=== PATIENT | male | born 1960 | race Caucasian/White ===

== ENCOUNTER 2019-02-20 17:50 | Emergency (ER) | payer OTHER, MEDICAID ==
[~2019-02-20] VITALS: Ht 167.6 cm; Wt 72.6 kg
[2019-02-20 17:50] VITALS: BP_SYST 131
[2019-02-20] MEDS ORDERED: DOCU250C14 PO (18:59)
[2019-02-20] MEDS ORDERED: CALC1CAP19 PO (18:59)
[2019-02-20] MEDS ORDERED: TAMS-11 PO (18:59)
[2019-02-20] MEDS ORDERED: LEVE500T9 PO (18:59)
[2019-02-20] MEDS ORDERED: FAMO20TA8 PO (18:59)
[2019-02-20] MEDS ORDERED: HAL2 PO (18:59)
[2019-02-20] MEDS ORDERED: CYAN500L3 SL (18:59)
[2019-02-20] MEDS ORDERED: CARB200T2 PO (18:59)
[2019-02-20] MEDS ORDERED: FOLI-43 PO (18:59)
[2019-02-20] MEDS ORDERED: DUTA0.5C PO (18:59)
[2019-02-20] MEDS ORDERED: LUBI24CA5 PO (18:59)
[2019-02-20 19:06] LABS: CALCIUM 8.1 mg/dL (8.4-11.0); CREATININE 0.71 mg/dL (0.55-1.30); POTASSIUM 3.8 mmol/L (3.5-5.1)
[2019-02-20 19:25] VITALS: BP_SYST 131
== END 2019-02-20 19:25 ==
LOC: SED 17:50
DX: S01.112A Laceration without foreign body of left eyelid and periocular area, initial encounter (principal); G40.89 Other seizures; Z88.8 Allergy status to other drugs, medicaments and biological substances; W18.39XA Other fall on same level, initial encounter; Y93.89 Activity, other specified; Y92.89 Other specified places as the place of occurrence of the external cause; Y99.8 Other external cause status
CPT/HCPCS: 36415; 80048; 99283

== ENCOUNTER 2019-04-22 09:22 | Emergency (ER) | payer OTHER, MEDICAID ==
[~2019-04-22] VITALS: Ht 147.3 cm; Wt 50.8 kg
[2019-04-22 09:22] VITALS: BP_SYST 90
[~2019-04-22 09:22] MED LIST: CALC1CAP19 PO; CARB200T2 PO; CYAN500L3 SL; DOCU250C14 PO; DUTA0.5C PO; FAMO20TA8 PO; FOLI-43 PO; HAL2 PO; LEVE500T9 PO; LUBI24CA5 PO; TAMS-11 PO
--- NOTE | 2019-04-22 09:27 | NUR ---
Patient triaged and placed in waiting room. VSS and patient appears in no acute distress at this time. Accompanied by CAREGIVERS, awaiting available bed, and MD notified of need for MSE.
--- NOTE | 2019-04-22 09:30 | NUR ---
Pt brought by caregiver, A&Ox2, pt presents to ER with cough/congestion , afebrile at this time, HR 57, skin pink and warm, cap refill <3. VSS.
--- NOTE | 2019-04-22 09:45 | NUR ---
Galina Lacy at bedside examining patient
--- NOTE | 2019-04-22 10:01 | NUR ---
Pt Alert to name, able to provide urine using urinal, afebrile, caregiver at bedside
[2019-04-22] MEDS ORDERED: NACL 0.9% 1,000 ML IV ONE (11:15)
[2019-04-22] MEDS ORDERED: PIPERACILLIN/TAZO 3.375 GM in NS 50 ML IV ONE (11:30)
[2019-04-22] MEDS ORDERED: PIPERACILLIN/TAZOBACTAM 3.375 GM/VIAL (ZOSYN) IV ONE (11:44)
[2019-04-22 11:45] LABS: BASOPHILS % (AUTO) 0.4 % (0.0-2.0); EOSINOPHILS # (AUTO) 0.2 K/uL (0.0-0.4); EOSINOPHILS % (AUTO) 3.1 % (0.0-4.0); HEMATOCRIT 37.3 % (36-54); HEMOGLOBIN 12.4 g/dL (14.0-18.0); LYMPHOCYTES # (AUTO) 1.8 K/uL (1.0-5.5); LYMPHOCYTES % (AUTO) 30.6 % (20.5-51.5); MEAN CORPUSCULAR HEMOGLOBIN 32 pg (27-31); MEAN CORPUSCULAR HGB CONC 33 % (32-36); MEAN CORPUSCULAR VOLUME 95 fL (79.0-98.0); MONOCYTES # (AUTO) 0.7 K/uL (0.0-1.0); MONOCYTES % (AUTO) 11.2 % (1.7-9.3); NEUTROPHILS # (AUTO) 3.2 K/uL (1.8-7.7); NEUTROPHILS % (AUTO) 54.7 % (40.0-70.0); PLATELET COUNT (AUTO) 178 K/uL (130-430); RED BLOOD CELL COUNT(AUTO) 3.92 MIL/uL (4.2-6.2); RED CELL DISTRIBUTION WIDTH 14.2 % (9.0-15.0); WHITE BLOOD COUNT (AUTO) 5.9 K/uL (4.8-10.8)
[2019-04-22 11:56] LABS: BILIRUBIN,URINE NEGATIVE (NEGATIVE); BLOOD, URINE NEGATIVE (NEGATIVE); COLOR,URINE YELLOW (YELLOW); GLUCOSE,URINE NEGATIVE (NEGATIVE); KETONES,URINE NEGATIVE (NEGATIVE); LEUKOCYTE ESTERASE ,URINE NEGATIVE (NEGATIVE); NITRITE, URINE NEGATIVE (NEGATIVE); PROTEIN URINE NEGATIVE (NEGATIVE); UROBILINOGEN,URINE 0.2 (0.2-1.0)
[2019-04-22 12:00] LABS: CLARITY/URINE SLIGHTLY CLOUDY (CLEAR)
[2019-04-22 13:08] LABS: CALCIUM 7.9 mg/dL (8.4-11.0); CREATININE 0.51 mg/dL (0.55-1.30); POTASSIUM 3.7 mmol/L (3.5-5.1)
[2019-04-22 13:12] LABS: ALBUMIN 2.7 g/dL (3.4-4.8); TOTAL BILIRUBIN 0.3 mg/dL (0.0-1.0)
--- NOTE | 2019-04-22 13:19 | NUR ---
Pt resting at this time,caregiver at bedside
[2019-04-22] MEDS ORDERED: PROMETHAZINE HCL 6.25 MG/5 ML UDC PO ONE (13:30)
[2019-04-22 14:10] VITALS: BP_SYST 100
--- NOTE | 2019-04-22 15:22 | NUR ---
Patient given written and verbal discharge instructions and verbalizes understanding. ER MD discussed with patient the results and treatment provided. Patient in stable condition. ID arm band removed. IV catheter removed intact and dressing applied, no active bleeding. Rx of Levaquin and Promethazine given. Patient educated on pain management and to follow up with PMD. Pain Scale 0/10. Opportunity for questions provided and answered. Medication side effect fact sheet provided.
== END 2019-04-22 15:22 | disposition home or self-care (01) ==
LOC: SED 09:22
DX: J18.9 Pneumonia, unspecified organism (principal); Z86.69 Personal history of other diseases of the nervous system and sense organs; Z79.899 Other long term (current) drug therapy
CPT/HCPCS: 36415; 71045; 80053; 81003; 83605; 85025; 86710; 87040; 87086; 96365; 99284; J2543; J7030; Q0169

== ENCOUNTER 2022-01-03 18:54 | Inpatient (IN) | payer OTHER, MEDICAID ==
[~2022-01-03] VITALS: Ht 162.6 cm; Wt 76.7 kg
[2022-01-03 19:13] VITALS: BP_SYST 137
--- NOTE | 2022-01-03 19:19 | NUR ---
BIB CAREGIVER C/O N/V/D X2 DAYS. DENIES FEVER, PER CAREGIVER PT APPETITE WAS LESSEN. PMH:PSYCH,SEIZURE,MR,CP-SPASTIC QUADRIPLEGIA. PT AWAKE AND ALERT, NOT IN ANY DISTRESS AT THIS TIME
--- NOTE | 2022-01-03 19:44 | NUR ---
Placed in room 3 . Placed on color television console monitor, blood pressure machine and pulse oximeter. To gown for exam. Side rails up. Report given to SUZANNE GEORGE.
[2022-01-03] MEDS ORDERED: ONDANSETRON HCL 4 MG/2 ML VIAL IVP ONE ×2 (20:00→21:00)
[2022-01-03 20:27] LABS: ALBUMIN 3.8 g/dL (3.4-4.8); TOTAL BILIRUBIN 0.8 mg/dL (0.0-1.0)
[2022-01-03 20:28] LABS: LYMPHOCYTES # (AUTO) 0.6 K/uL (1.0-5.5)
[2022-01-03 20:33] LABS: BASOPHILS % (AUTO) 0.2 % (0.0-2.0); LYMPHOCYTES % (AUTO) 9.4 % (20.5-51.5); MEAN CORPUSCULAR VOLUME 91 fL (79.0-98.0); MONOCYTES # (AUTO) 0.5 K/uL (0.0-1.0); NEUTROPHILS # (AUTO) 5.4 K/uL (1.8-7.7); NEUTROPHILS % (AUTO) 83.4 % (40.0-70.0); PLATELET COUNT (AUTO) 219 K/uL (130-430); RED BLOOD CELL COUNT(AUTO) 5.62 MIL/uL (4.2-6.2); RED CELL DISTRIBUTION WIDTH 14.4 % (9.0-15.0); WHITE BLOOD COUNT (AUTO) 6.5 K/uL (4.8-10.8)
[2022-01-03] MEDS ORDERED: NACL 0.9% 1,000 ML IV ONE (21:00)
--- NOTE | 2022-01-03 21:05 | NUR ---
Rectal temp of 101. made aware.
[2022-01-03] MEDS ORDERED: cefTRIAXone 1 GM IVPB PREMIX 50 ML IV ONE (21:15)
[2022-01-03] MEDS ORDERED: ACETAMINOPHEN 650 MG SUPP.RECT RC ONE ×2 (21:15→21:39)
--- NOTE | 2022-01-03 21:25 | NUR ---
cALLED HOUSE SUP FOR TYLENOL MEDICATION. MEDICATION CURRENTLY NOT LOADED INTO PIXIS
--- NOTE | 2022-01-03 22:33 | NUR ---
# 16 FR Gilman catheter with use of sterile technique. Immediate return of 40 cc DARK YELLOW urine noted. Bedside drainage bag placed below level of bladder. Urine sample collected and sent to lab. Pt tolerated procedure WELL. Patient arrived with gilman in place, changed due to standard of practice prior to admission. Patient unable to toilet self.
[2022-01-03 23:28] LABS: BILIRUBIN,URINE NEGATIVE (NEGATIVE); BLOOD, URINE 1+ (NEGATIVE); CLARITY/URINE CLEAR (CLEAR); COLOR,URINE YELLOW (YELLOW); GLUCOSE,URINE NEGATIVE (NEGATIVE); KETONES,URINE NEGATIVE (NEGATIVE); LEUKOCYTE ESTERASE ,URINE TRACE (NEGATIVE); NITRITE, URINE POSITIVE (NEGATIVE); PH,URINE 7.5 (5.0-8.0); PROTEIN URINE 2+ (NEGATIVE)
[2022-01-03] MEDS ORDERED: ONDANSETRON HCL 4 MG/2 ML VIAL ONE (23:33)
--- NOTE | 2022-01-04 00:10 | NUR ---
temporal temp 98.4
[2022-01-04] MEDS ORDERED: NACL 0.9% 1,000 ML IV ONE (00:15)
[2022-01-04] MEDS ORDERED: ONDANSETRON HCL 4 MG/2 ML VIAL IVP PRN (00:30)
[2022-01-04] MEDS: NACL 0.9% 1,000 ML IV SCH ×2 (00:30→13:00)
[2022-01-04] MEDS ORDERED: ACETAMINOPHEN 500 MG TABLET PO PRN (00:30)
--- NOTE | 2022-01-04 00:30 | NUR ---
Admit bed requested Patient will be admitted to care of . Admitted to TELE unit. Diagnosis SEPSIS Inpatient (Yes or No) YES Observation (Yes or No) NO Orientation concerns or request close to nursing station (Yes or No) YES Covid Status NEGATIVE On vent or bipap NO Isolation requirements NO Needs a sitter NO From Home (Yes or if No enter name of facility) [facility] Requires Dialysis (Yes or No) NO Med Rec Completed (Yes of No) PENDING
[2022-01-04] MEDS ORDERED: FLUT16SP16 NS (00:42)
[2022-01-04] MEDS ORDERED: TOP25 PO (00:42)
[2022-01-04] MEDS ORDERED: CYAN250010 PO (00:42)
--- NOTE | 2022-01-04 00:50 | NUR ---
Pt repositioned in bed for comfort. VSS, safety precautions in place and connected to montior.
[2022-01-04 01:05] LABS: BACTERIA,URINE None Seen /HPF (None Seen); WBC,URINE >100 /HPF (0-3)
[2022-01-04 01:06] LABS: CALCIUM OXALATE CRYSTALS,UR 30-50 /HPF (None Seen)
[2022-01-04 01:45] LABS: MUCUS,URINE None Seen /LPF (None Seen)
--- NOTE | 2022-01-04 01:50 | NUR ---
Admission Note Received patient from ER with diagnosis of SEPSIS.
--- NOTE | 2022-01-04 01:50 | NUR ---
Patient will be admitted to care of Dr. Barnes. Admitted to telemetry unit. Will go to room 112B. Belongings list completed. Complete and up to date summary report printed. SBAR report given to Patel GEORGE at bedside with opportunity for questions.
--- NOTE | 2022-01-04 01:52 | NUR ---
CONSULTATION PAGED/CALLED Reason for Consultation: SEPSIS Person Who was Notified: ZANA Consulting Physician: GARRISON Manager Process Improvement Specialty: Ordering Physician: REGGIE
[2022-01-04 02:08] VITALS: BP_SYST 140
--- NOTE | 2022-01-04 07:30 | NUR ---
Morning Rounds: Bedside report received from night nurse Laurie.Patient awake,non verbal. Iv fluids running at left hand intact. With left arm contracted. Mentally challenge patient.Pozo draining to tom urine in large amount. Bed locked at lowest position. stable. Addendum: 01/04/22 at 1849 by Isha Agrawal RN BILATERAL PADDED SIDE RAILS ON.
[2022-01-04 08:00] VITALS: BP_SYST 120
--- NOTE | 2022-01-04 08:33 | NUR ---
VERIFIED ORDERS: CALLED DR Rogers OLSON FOR VERIFICATIONS OF ORDERS AND SPOKE WITH YUMI SENA.
[2022-01-04] MEDS ORDERED: CEFEPIME 1 GM in D5W 50 ML IV SCH ×4 (09:00)
--- NOTE | 2022-01-04 09:45 | NUR ---
ID CALLED BACK: SPOKE WITH DR Rogers OLSON WITH ORDERS GIVE ZOSYN 4.5GRAMS IV EVERY 8 HOURS,TO CALL DR. Dora PAREDES REGARDING MAXIPIME IV.
--- NOTE | 2022-01-04 10:15 | NUR ---
Chucho Gimenez: Spoke with Dr Monaco and dorina to chucho Gimenez.
[2022-01-04 12:30] VITALS: BP_SYST 109
[2022-01-04] MEDS: PIPERACILLIN/TAZO 4.5GM/DEX-IS 100 ML IV SCH ×2 (13:27→13:28)
[2022-01-04 14:19] VITALS: BP_SYST 120
[2022-01-04 15:25] VITALS: BP_SYST 121
--- NOTE | 2022-01-04 18:44 | NUR ---
EVENING ROUNDS: PATIENT RESTING. O2 2L/NC,GOOD SATURATION. IV FLUIDS RUNNING AT LEFT HAND,INTACT. BED LOCKED AT LOWEST POSITION. NO ACUTE DISTRESS.CONTINUE TO MONITOR.SEIZURE PRECAUTIONS RENDERED.
[2022-01-04 20:00] VITALS: BP_SYST 117
[2022-01-04] MEDS: HALOPERIDOL 1 MG TABLET (HALDOL) PO SCH (20:24)
[2022-01-04] MEDS: TOPIRAMATE 100 MG TABLET(Topamax) PO SCH (20:24)
[2022-01-04] MEDS: levETIRAcetam 500 MG TABLET PO SCH (20:24)
[2022-01-04] MEDS: CALCIUM CARBONATE/VITAMIN D3 1 TAB TABLET PO SCH (21:00)
[2022-01-04] MEDS ORDERED: PIPERACILLIN/TAZO 4.5 GM in NS 100 ML IV SCH (22:00)
[2022-01-05] VITALS: BP_SYST 98
[2022-01-05] MEDS ORDERED: cefTRIAXone 1 GM VIAL ONE (01:18)
[2022-01-05] MEDS: NACL 0.9% 1,000 ML IV SCH ×2 (01:49→15:37)
[2022-01-05] MEDS: cefTRIAXone 1 GM in D5W 50 ML IV SCH ×2 (01:49→22:54)
--- NOTE | 2022-01-05 07:30 | NUR ---
Shift summary Patient resting in bed, unlabored breathing on 2L NC. Aspiration and seizure precautions in place. Pozo catheter patent draining tom urine. Patient answers questions and expresses needs when given enough time to speak. Turned and repositioned. Incontinence care provided. Peripheral IV noted to be infiltrated this morning and was removed. Endorsed to oncoming nurse.
[2022-01-05 08:00] VITALS: BP_SYST 106
--- NOTE | 2022-01-05 08:08 | NUR ---
Morning Rounds: Bedside report and updates given by night nurse Katy.Patient awake ,lying on the bed. Call light with in reach. Bed locked at lowest position.Bed alarm on. No iv access per endorsed. Stable.
[2022-01-05] MEDS ORDERED: FLUTICASONE PROPIONATE 50 mCg/SPRAY 16 GM NS PRN (09:00)
[2022-01-05] MEDS ORDERED: CYANOCOBALAMIN 2500 MCG PO SCH (09:00)
[2022-01-05] MEDS: CALCIUM CARBONATE/VITAMIN D3 1 TAB TABLET PO SCH ×2 (09:52→22:55)
[2022-01-05] MEDS: TAMSULOSIN HCL 0.4 MG CAP PO SCH (09:55)
[2022-01-05] MEDS: levETIRAcetam 500 MG TABLET PO SCH ×2 (09:55→22:55)
[2022-01-05] MEDS: FOLIC ACID 1 MG TABLET PO SCH (09:55)
[2022-01-05] MEDS: FAMOTIDINE 20 MG TABLET PO SCH (09:56)
[2022-01-05] MEDS: DUTASTERIDE 0.5 MG CAPSULE (AVODART) PO SCH (09:56)
[2022-01-05] MEDS: CYANOCOBALAMIN 1000 mCg TABLET PO SCH (09:56)
[2022-01-05] MEDS: TOPIRAMATE 100 MG TABLET(Topamax) PO SCH ×3 (09:58→22:55)
--- NOTE | 2022-01-05 10:30 | NUR ---
IV CHANGED: IV RE SITED AT LEFT WRIST USING G#22,CONTINUE IV FLUIDS ORDERED.
[2022-01-05 11:53] VITALS: BP_SYST 103
--- NOTE | 2022-01-05 14:30 | NUR ---
RN ROUNDS: PATIENT RESTING. NO DISTRESS.
[2022-01-05 16:17] VITALS: BP_SYST 100
--- NOTE | 2022-01-05 18:30 | NUR ---
EVENING ROUNDS: PATIENT REFUSED DINNER.WILL ENDORSED TO NIGHT NURSE TO TRY TO FEED PATIENT LATER. MAINTAINED 02 2L/NC,GOOD SATURATION. IV FLUIDS RUNNING AT RIGHT WRIST INTACT.BED LOCKED AT LOWEST POSITION.PHELAN IN SITU. BILATERAL PADDED SIDE RAILS ON. NOT IN ANY RESPIRATORY DISTRESS.
[2022-01-05 20:00] VITALS: BP_SYST 105
--- NOTE | 2022-01-05 20:08 | NUR ---
Received report from day shift. Patient resting in bed, unlabored breathing on 2L NC. Pozo catheter in place draining yellow urine. IV fluids infusing as ordered. Call light in reach, bed low and locked.
[2022-01-05] MEDS: HALOPERIDOL 1 MG TABLET (HALDOL) PO SCH (22:55)
[2022-01-06] VITALS: BP_SYST 112
[2022-01-06] MEDS: NACL 0.9% 1,000 ML IV SCH ×2 (03:16→15:41)
[2022-01-06 07:12] LABS: BASOPHILS % (AUTO) 0.3 % (0.0-2.0); EOSINOPHILS # (AUTO) 0.1 K/uL (0.0-0.4); HEMATOCRIT 34.1 % (36-54); LYMPHOCYTES # (AUTO) 1.5 K/uL (1.0-5.5); LYMPHOCYTES % (AUTO) 19.3 % (20.5-51.5); MEAN CORPUSCULAR VOLUME 90 fL (79.0-98.0); MONOCYTES # (AUTO) 0.8 K/uL (0.0-1.0); MONOCYTES % (AUTO) 10.4 % (1.7-9.3); NEUTROPHILS # (AUTO) 5.3 K/uL (1.8-7.7); PLATELET COUNT (AUTO) 145 K/uL (130-430); RED BLOOD CELL COUNT(AUTO) 3.79 MIL/uL (4.2-6.2); RED CELL DISTRIBUTION WIDTH 14.6 % (9.0-15.0); WHITE BLOOD COUNT (AUTO) 7.6 K/uL (4.8-10.8)
--- NOTE | 2022-01-06 07:30 | NUR ---
Closing Patient resting in bed, unlabored breathing on 2L NC. IV fluids infusing as ordered. Pozo catheter in place draining tom urine. Seizure and aspiration precautions in place. Turned and repositioned with pillow support. Call light in reach.
[2022-01-06 08:00] VITALS: BP_SYST 116
[2022-01-06 08:19] LABS: ALBUMIN 1.9 g/dL (3.4-4.8); CALCIUM 8.1 mg/dL (8.4-11.0); CREATININE 0.66 mg/dL (0.55-1.30); POTASSIUM 3.3 mmol/L (3.5-5.1); TOTAL BILIRUBIN 0.4 mg/dL (0.0-1.0)
[2022-01-06] MEDS: levETIRAcetam 500 MG TABLET PO SCH ×2 (09:31→22:31)
[2022-01-06] MEDS: CYANOCOBALAMIN 1000 mCg TABLET PO SCH (09:32)
[2022-01-06] MEDS: FOLIC ACID 1 MG TABLET PO SCH (09:32)
[2022-01-06] MEDS: FAMOTIDINE 20 MG TABLET PO SCH (09:32)
[2022-01-06] MEDS: TAMSULOSIN HCL 0.4 MG CAP PO SCH (09:32)
[2022-01-06] MEDS: CALCIUM CARBONATE/VITAMIN D3 1 TAB TABLET PO SCH ×2 (09:32→22:32)
[2022-01-06] MEDS: TOPIRAMATE 100 MG TABLET(Topamax) PO SCH ×3 (09:33→22:32)
[2022-01-06] MEDS: DUTASTERIDE 0.5 MG CAPSULE (AVODART) PO SCH (09:35)
[2022-01-06 12:00] VITALS: BP_SYST 118
--- NOTE | 2022-01-06 12:18 | NUR ---
Patient is at his prior level of function. Dependent. Nursing will continue to reposition and ROM extremities as part of his daily care. He is not appropriate for skilled Physical Therapy in this setting.
[2022-01-06 16:00] VITALS: BP_SYST 114
[2022-01-06] MEDS ORDERED: POTASSIUM CHLORIDE 20 MEQ TAB.PRT.SR PO ONE (18:30)
[2022-01-06 20:00] VITALS: BP_SYST 100
[2022-01-06] MEDS: cefTRIAXone 1 GM in D5W 50 ML IV SCH (22:31)
[2022-01-06] MEDS: HALOPERIDOL 1 MG TABLET (HALDOL) PO SCH (22:32)
[2022-01-07 00:30] VITALS: BP_SYST 101
[2022-01-07 07:30] LABS: BASOPHILS % (AUTO) 0.4 % (0.0-2.0); EOSINOPHILS # (AUTO) 0.1 K/uL (0.0-0.4); EOSINOPHILS % (AUTO) 1.4 % (0.0-4.0); HEMATOCRIT 33.4 % (36-54); LYMPHOCYTES # (AUTO) 1.3 K/uL (1.0-5.5); LYMPHOCYTES % (AUTO) 15.5 % (20.5-51.5); MEAN CORPUSCULAR VOLUME 89 fL (79.0-98.0); MONOCYTES # (AUTO) 0.9 K/uL (0.0-1.0); MONOCYTES % (AUTO) 9.9 % (1.7-9.3); NEUTROPHILS # (AUTO) 6.3 K/uL (1.8-7.7); NEUTROPHILS % (AUTO) 72.8 % (40.0-70.0); PLATELET COUNT (AUTO) 159 K/uL (130-430); RED BLOOD CELL COUNT(AUTO) 3.74 MIL/uL (4.2-6.2); RED CELL DISTRIBUTION WIDTH 13.6 % (9.0-15.0); WHITE BLOOD COUNT (AUTO) 8.7 K/uL (4.8-10.8)
--- NOTE | 2022-01-07 07:30 | NUR ---
Shift summary Patient resting in bed, unlabored breathing on 2L NC. Vitals stable. Turned and repositioned with pillow support. Maximum assist with puree diet, tolerated well. IV fluids infusing as ordered. Call light in reach, bed low and locked.
[2022-01-07 08:00] VITALS: BP_SYST 108
[2022-01-07 08:00] LABS: CALCIUM 8.2 mg/dL (8.4-11.0); CREATININE 0.68 mg/dL (0.55-1.30); POTASSIUM 3.6 mmol/L (3.5-5.1); TOTAL BILIRUBIN 0.5 mg/dL (0.0-1.0)
[2022-01-07] MEDS: levETIRAcetam 500 MG TABLET PO SCH ×2 (09:11→23:21)
[2022-01-07] MEDS: TOPIRAMATE 100 MG TABLET(Topamax) PO SCH ×3 (09:11→23:22)
[2022-01-07] MEDS: FOLIC ACID 1 MG TABLET PO SCH (09:12)
[2022-01-07] MEDS: CYANOCOBALAMIN 1000 mCg TABLET PO SCH (09:12)
[2022-01-07] MEDS: FAMOTIDINE 20 MG TABLET PO SCH (09:13)
[2022-01-07] MEDS: CALCIUM CARBONATE/VITAMIN D3 1 TAB TABLET PO SCH ×2 (09:13→23:21)
[2022-01-07] MEDS: CIPROFLOXACIN HCL 500 MG TABLET PO SCH ×2 (09:13→23:22)
[2022-01-07] MEDS: DUTASTERIDE 0.5 MG CAPSULE (AVODART) PO SCH (09:14)
[2022-01-07] MEDS: TAMSULOSIN HCL 0.4 MG CAP PO SCH (09:29)
--- NOTE | 2022-01-07 10:00 | NUR ---
NEW IV: IV TO THE RFA KINKED AND CANNOT BE FLUSHED. IV REMOVED FROM THE RFA. IV CATH INTACT WHEN REMOVED. IV SITE COVERED WITH GAUZE AND SECURE WITH TAPE. NEW IV INSERTED TO THE RFA 22G WITH GOOD BLOOD RETURN. COVERED SITE WITH TEGADERM AND TAPE.
[2022-01-07 12:00] VITALS: BP_SYST 106
[2022-01-07 16:00] VITALS: BP_SYST 100
[2022-01-07 20:00] VITALS: BP_SYST 95
[2022-01-07] MEDS: HALOPERIDOL 1 MG TABLET (HALDOL) PO SCH (23:22)
[2022-01-08] VITALS: BP_SYST 98
--- NOTE | 2022-01-08 07:30 | NUR ---
OPENING NOTES: PATIENT IS RESTING IN BED QUIETLY. PATIENT IS AAOX1 TO PERSON ONLY, SLOW TO RESPOND WITH GARBLE SPEECH. NO ADDITIONAL DISTRESS OR PAIN AT THIS TIME. EXPLAINED POC BUT PATIENT DOES NOT SEEM TO COMPREHEND WHAT IS BEING SAID DUE TO COGNITIVE BASELINE. NEED EDUCATIONAL REINFORCEMENT. BED IN LOW AND LOCK POSITION. BED ALARM ON. CALL LIGHT AND BEDSIDE TABLE WITHIN REACH. STABLE CONDITION AT THIS TIME.
--- NOTE | 2022-01-08 07:30 | NUR ---
Shift summary Patient stable through night. Pozo patent draining tom urine. Turned and repositioned. Call light in reach, bed alarm on.
[2022-01-08] MEDS ORDERED: LACT1CAP89 PO (07:42)
[2022-01-08] MEDS ORDERED: CIPR-260 PO (07:42)
[2022-01-08 08:00] VITALS: BP_SYST 105
[2022-01-08] MEDS: FOLIC ACID 1 MG TABLET PO SCH (09:02)
[2022-01-08] MEDS: CIPROFLOXACIN HCL 500 MG TABLET PO SCH (09:02)
[2022-01-08] MEDS: TOPIRAMATE 100 MG TABLET(Topamax) PO SCH (09:03)
[2022-01-08] MEDS: FAMOTIDINE 20 MG TABLET PO SCH (09:03)
[2022-01-08] MEDS: DUTASTERIDE 0.5 MG CAPSULE (AVODART) PO SCH (09:03)
[2022-01-08] MEDS: CALCIUM CARBONATE/VITAMIN D3 1 TAB TABLET PO SCH (09:04)
[2022-01-08] MEDS: CYANOCOBALAMIN 1000 mCg TABLET PO SCH (09:04)
[2022-01-08] MEDS: levETIRAcetam 500 MG TABLET PO SCH (09:04)
[2022-01-08] MEDS: TAMSULOSIN HCL 0.4 MG CAP PO SCH (09:04)
--- NOTE | 2022-01-08 10:30 | NUR ---
OK TO DC TODAY: PATIENT WILL BE DC [facility] TO [facility]. 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
[2022-01-08 12:00] VITALS: BP_SYST 100
[2022-01-08 12:22] VITALS: BP_SYST 100
--- NOTE | 2022-01-08 13:42 | NUR ---
CM: Unable to contact staff at [facility] ph # [phone] is not in service, # [phone] has no answer, mail box not set up, # [phone] has only busy tones. MICHAELLE called dr. Pappas's office # [phone], s/w Emely who will contact the [facility] other personal phone number. Cm to f/u. Addendum: 01/08/22 at 1427 by Tom Sánchez RN Received contact info of [facility] manager /Brie # [phone]. I informed that the pt is being dc. Brie will arrange the transportation for pickers material handlers around 3pm. She stated [facility] is no longer providing the service and now changed to " [facility] in [place] tel # [phone]. fax # [phone]. Brie requested the prescription be faxing to [facility] instead. DORIS Harrington made aware.
--- NOTE | 2022-01-08 14:00 | NUR ---
02 SAT WNL IN RA: 02 SAT IN ROOM AIR (RA) SUSTAINING AT 97%. NO DISTRESS OR SOB NOTED.
[2022-01-08 14:30] VITALS: BP_SYST 104
--- NOTE | 2022-01-08 14:35 | NUR ---
RX: PER CASE MANAGE HUA, SHE HAD SPOKEN WITH THE [facility] SURFACE GRINDER [facility] AND STATED THAT THE PHARMACY THAT WAS PUT IN THE SYSTEM "[facility]" WAS NO LONGER THEIR PHARMACY. PRIMARY NURSE CALLED [facility] AND EXPLAINED TO HER THAT [facility] WAS PROVIDED BY THEM ACCORDING TO THEIR (COVER/FACE SHEET). DR PAREDES HAD ALREADY SEND THE E-PRESCRIPTION TO [facility] AND CANNOT BE FIXED. MADE HER AWARE THAT THE MEDICATION WILL HAVE TO BE PICKED UP AT THE [facility]. SHE CAN EITHER PICK IT UP HERSELF OR SEND SOMEONE THEIR. HOWEVER, [facility] WAS UPSET AND STATED THAT THEY NO LONGER USE [facility] BUT INSTEAD THEY ARE USING [facility]. [facility] BEGAN TO YELL AND SCREAM AT THE PRIMARY NURSE OVER THE PHONE. TRIED TO EXPLAINED TO [facility] THE SITUATION IN A CALM AND PROFESSIONAL MANNER BUT INSTEAD SHE WONT LISTEN AND CONTINUE TO YELL AND SCREAM CALLING THE FACILITY "INCOMPETENT." HAD [employer]YROLL SPECIALIST DELBERT GEORGE SPOKE WITH [facility] BUT SHE CONTINUE TO YELL AND SCREAM OVER THE PHONE. NURSES CANNOT SPEAK TO HER BECAUSE SHE WONT NOT LISTEN (TALKING OVER THE NURSES). MADE AWARE TO [facility] THAT WE WILL CALL HER BACK WHEN SHE'S READY TO TALK IN A CALM AND PROFESSIONAL MANNER. FYI: FACE SHEET SEND FROM [facility] INDICATE THAT THEIR RX IS [facility].
--- NOTE | 2022-01-08 15:00 | NUR ---
FC DC: FC D/C. NO COMPLICATION NOTED. URINE 300 CC DARK ERNESTO IN COLOR.
--- NOTE | 2022-01-08 15:05 | NUR ---
DC HOME: CAREGIVER FREYA AT THE BEDSIDE TO VEHICLE AND EQUIPMENT CLEANER THE PATIENT WITH HIS PERSONAL WHEELCHAIR. D/C INSTRUCTIONS GIVEN AND EXPLAINED TO FREYA AND VERBALIZED UNDERSTANDING. IV REMOVED FROM THE RFA. IV CATH INTACT WHEN REMOVED. NO BLEEDING NOTED. COVER SITE WITH GAUZE AND SECURE WITH TAPE. PATIENT TRANSFER TO HIS PERSONAL WHEELCHAIR. GAVE PERSONAL BELONGINGS TO CAREGIVER AND DENIES MISSING ITEMS. LEFT THE FACILITY IN A STABLE CONDITION WHEELED OUT BY CAREGIVER ACCOMPANIED BY PRIMARY NURSE.
== END 2022-01-08 15:05 | disposition home or self-care (01) | DRG 871 ==
LOC: SED 18:54 → STU 01-04 00:18
PROVIDERS: ADMIT Family Medicine; ATTEND Family Medicine
PROC: 0T2BX0Z Change Drainage Device in Bladder, External Approach (ICD-10-PCS; principal; 2022-01-04)
DX: A41.9 Sepsis, unspecified organism (principal); E43 Unspecified severe protein-calorie malnutrition; G80.0 Spastic quadriplegic cerebral palsy; J18.9 Pneumonia, unspecified organism; E87.1 Hypo-osmolality and hyponatremia; N39.0 Urinary tract infection, site not specified; R13.10 Dysphagia, unspecified; N40.0 Benign prostatic hyperplasia without lower urinary tract symptoms; G40.909 Epilepsy, unspecified, not intractable, without status epilepticus; E86.0 Dehydration; F79 Unspecified intellectual disabilities; E87.6 Hypokalemia; Z20.822 Contact with and (suspected) exposure to COVID-19; D64.9 Anemia, unspecified; Z68.29 Body mass index [BMI] 29.0-29.9, adult
CPT/HCPCS: 36415; 71045; 80053; 81000; 83605; 83690; 83735; 83880; 84484; 85025; 87040; 87081; 87086; 93005; 96365; 96375; 99285; G0378; J0692; J0696; J2405; J2543; J7060